=== PATIENT | male | born 1970 | race Caucasian/White ===

== ENCOUNTER → 2023-07-15 | Outpatient (CLI) | payer BC ==
--- NOTE | 2023-07-15 22:27 | US ---
EXAMINATION TYPE: US kidneys/renal and bladder DATE OF EXAM: 07/15/2023 COMPARISON: NONE CLINICAL INDICATION: Male, 53 years old with history of N28.1 RENAL CYST; known left renal cysts, no issues EXAM MEASUREMENTS: Right Kidney: 12.4 x 5.4 x 5.3 cm Left Kidney: 9.8 x 6.7 x 5.2 cm Right Kidney: No hydronephrosis or masses seen Left Kidney: multiple cystic areas, largest = 3.9 x 4.1 x 3.5cm superior pole Bladder: wnl Bilateral Jets seen: yes There is no evidence for hydronephrosis at this point in time. No nephrolithiasis is seen. No dillon s are identified. The urinary bladder is anechoic. Bilateral ureteral jets are seen. IMPRESSION: 1. No evidence for obstructive uropathy. 2. Left renal cysts
== END | disposition home or self-care (01) ==
LOC: RADUSWWP 14:46
PROVIDERS: ATTEND Urology
DX: N28.1 Cyst of kidney, acquired (principal)
CPT/HCPCS: 76770

== ENCOUNTER → 2024-09-03 | Outpatient (CLI) | payer BC ==
--- NOTE | 2024-09-03 17:06 | US ---
EXAMINATION TYPE: US kidneys/renal and bladder DATE OF EXAM: 09/03/2024 COMPARISON: 07/15/2023 CLINICAL INDICATION: Male, 54 years old with history of R10.9.N28.1; left cyst, reassess measurements TECHNIQUE: Grayscale imaging of the bilateral kidneys and urinary bladder: FINDINGS: EXAM MEASUREMENTS: Right Kidney: 13.1 x 5.0 x 6.1 cm Left Kidney: 12.1 x 4.9 x 6.4 cm Right Kidney: No hydronephrosis or masses seen Left Kidney: cyst seen = 7.8 x 4.9 x 5.0cm. This appears bilobed. No hydronephrosis. Bladder: wnl IMPRESSION: 1. The previous left upper pole renal cyst measuring 4.1 cm now appears bilobed measuring up to 7.8 c m. Recommend further contrast enhanced CT or MRI evaluation of the kidneys for more accurate assessme nt. 2. No hydronephrosis on either side. [facility], , 09/03/2024 5:03 PM
== END | disposition home or self-care (01) ==
LOC: RADUSWWP 16:17
PROVIDERS: ATTEND Urology
DX: N28.1 Cyst of kidney, acquired (principal)
CPT/HCPCS: 76770